=== PATIENT | female | born 2000 | race Caucasian/White ===

== ENCOUNTER 2023-12-08 06:37 | Emergency (ER) | payer BC ==
[2023-12-08 06:41] VITALS: BP 108/71; PULSE 135; RESP 18; TEMP 98; BMI 22.6
[2023-12-08] MEDS: SODIUM CHLORIDE 0.9% 500 ML INFUS.BAG IV ONE (08:12)
[2023-12-08 08:20] LABS: BASO % 0.4 % (0-2.0); HEMATOCRIT 40.3 % (32.4-45.2); HEMOGLOBIN 13.5 GM/dL (10.7-15.3); LYMPH % 23.5 % (8-40); MCH 30.2 pg (25.7-33.7); MCHC 33.5 g/dl (32.0-36.0); MEAN CELL VOLUME 90.2 fl (80-96); MEAN PLT VOLUME 7.6 fl (7.5-11.1); MONO % 10.4 % (3.8-10.2); NEUT % 64.7 % (42.8-82.8); PLATELET COUNT 166 10^3/uL (134-434); RBC 4.47 M/mm3 (3.60-5.2); RDW 12.5 % (11.6-15.6); WHITE BLOOD COUNT 4.7 K/mm3 (4.0-10.0)
[2023-12-08 08:49] LABS: POTASSIUM 3.5 mmol/L (3.5-5.1)
[2023-12-08 08:51] LABS: CALCIUM 8.9 mg/dL (8.5-10.1)
[2023-12-08 08:52] LABS: ALBUMIN 4.3 g/dl (3.4-5.0); BLOOD UREA NITROGEN 5.7 mg/dL (7-18)
[2023-12-08 08:55] LABS: CREATININE 0.6 mg/dL (0.55-1.3)
[2023-12-08 08:56] LABS: BILIRUBIN,TOTAL 0.8 mg/dL (0.2-1); TOT PROT 7.2 g/dl (6.4-8.2)
== END 2023-12-08 10:25 | disposition home or self-care (01) ==
LOC: JER 06:37
DX: R00.2 Palpitations (principal)
CPT/HCPCS: 36415; 80053; 84703; 85025; 93005; 93010; 99284-25